=== PATIENT | female | born 1990 | race Caucasian/White ===

== ENCOUNTER 2019-01-12 21:45 | Emergency (ER) | payer BC ==
--- NOTE | 2019-01-12 22:14 | EDM.PDOC ---
ED HPI GENERAL MEDICAL PROBLEM - General Chief Complaint: General Stated Complaint: leg pain Time Seen by Provider: 01/12/19 21:54 Source of Information: Reports: Patient, Family (sister) History Limitations: Reports: No Limitations - History of Present Illness INITIAL COMMENTS - FREE TEXT/NARRATIVE: Patient presents with right lower leg pain and swelling for several days. Today she also felt a little short of breath. No injury or trauma to the leg. She denies any recent prolonged inactivity or bed rest. 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 She has ulcerative colitis and takes prednisone; recently stopped Humira; also takes oral contraceptive. - Related Data Allergies Allergy/AdvReac Type Severity Reaction Status Date / Time codeine Allergy Nausea and Verified 09/27/15 10:38 Vomiting Home Meds: Home Meds Ibuprofen [Motrin] 600 mg PO Q6H #30 tablet 02/24/15 [Rx] Iron 18 mg PO DAILY 02/24/15 [History] Methocarbamol [Robaxin-750] 750 mg PO Q6HR #20 tablet 02/24/15 [Rx] Norgestimate-Ethinyl Estradiol [Norg-Ee 0.18-0.215-0.25/0.035] 1 tab PO DAILY [History] predniSONE [Prednisone] 20 mg PO DAILY #3 tablet 02/24/15 [Rx] Acetaminophen [Tylenol] 325 mg PO 01/12/19 [History] Past Medical History - Past Surgical History HEENT Surgical History: Reports: Adenoidectomy, Tonsillectomy Other Musculoskeletal Surgeries/Procedures:: [place]/Bone spur removal on left foot in spring2012 Social & Family History - Family History Cardiac: Reports: High Cholesterol Other Cardiac Family History: grandmother Respiratory: Reports: COPD Other Respiratory Family Hisory: grandmother Neurological: Reports: CVA Other Neurological Family History: grandmother ED ROS GENERAL - Review of Systems Review Of Systems: See Below Constitutional: Denies: Fever, Chills, Malaise, Weakness HEENT: Denies: Throat Pain, Throat Swelling, Vision Change Respiratory: Reports: Shortness of Breath. Denies: Cough Cardiovascular: Denies: Chest Pain, Lightheadedness, Syncope Endocrine: Reports: No Symptoms GI/Abdominal: Reports: Other (Her UC is doing quite well recently.). Denies: Abdominal Pain, Anorexia, Decreased Appetite : Reports: Dysuria (just today, mild). Denies: Discharge (no vaginal discharge, redness or pain), Flank Pain Musculoskeletal: Reports: Leg Pain (right lower leg anterior and posterior up to knee) Skin: Denies: Cyanosis, Jaundice, Mottled, Pallor, Diaphoresis Neurological: Denies: Confusion, Dizziness, Headache, Seizure, Syncope, Trouble Speaking, Difficulty Walking Psychiatric: Denies: Agitation, Anxiety, Confusion ED EXAM, GENERAL - Physical Exam Exam: See Below Exam Limited By: No Limitations General Appearance: Alert, WD/WN, No Apparent Distress Eye Exam: Bilateral Eye: EOMI, Normal Inspection, PERRL Ears: Normal External Exam, Hearing Grossly Normal Nose: Normal Inspection, No Blood Throat/Mouth: Normal Inspection, Normal Lips, Normal Teeth, Normal Gums, Normal Oropharynx, Normal Voice, No Airway Compromise Head: Atraumatic, Normocephalic Neck: Normal Inspection, Supple, Non-Tender, Full Range of Motion Respiratory/Chest: No Respiratory Distress, Lungs Clear, Normal Breath Sounds, No Accessory Muscle Use Cardiovascular: Regular Rate, Rhythm, No Murmur GI/Abdominal: Soft, Non-Tender, No Organomegaly, No Distention, No Abnormal Bruit Back Exam: Normal Inspection, Full Range of Motion. No: CVA Tenderness (L), CVA Tenderness (R) Extremities: Normal Range of Motion, Normal Capillary Refill, Leg Pain (right calf squeeze is tender), Increased Warmth (right calf, mild with slight redness) , Other (Right calf has slight erythema inferomedially and measures 38 cm vs 36 cm on left. Normal and symmetric plantar/dorsiflexion.). No: Fernando's Sign Neurological: Alert, Oriented, CN II-XII Intact, Normal Cognition, No Motor/ Sensory Deficits Psychiatric: Normal Affect, Normal Mood Skin Exam: Warm, Dry, Intact, Normal Color, No Rash Course - Vital Signs Last Recorded V/S: Last Vital Signs Temp 97.3 F 01/12/19 22:00 Pulse 85 01/12/19 23:42 Resp 18 01/12/19 23:42 BP 116/65 01/12/19 23:42 Pulse Ox 97 01/12/19 23:42 - Orders/Labs/Meds Orders: Active Orders 24 hr Category Date Time Status Chest w Cont [CT] Stat Exams 01/12/19 22:11 Ordered CULTURE URINE [RM] Stat Lab 01/12/19 23:21 Ordered Heparin Sodium/0.45% NaCl [Heparin 25,000 Units in 1/2 Med 01/13/19 00:15 Ordered NS 250 ML] 25,000 units in 250 ml IV CONTINUOUS Sodium Chloride 0.9% [Normal Saline] 100 ml Med 01/12/19 23:00 Active IV ASDIRECTED Medication Orders Sodium Chloride (Normal Saline) 100 mls @ 200 mls/hr IV ASDIRECTED JUMA Last Admin: 01/12/19 23:09 Dose: 200 mls/hr Heparin Sodium/Sodium Chloride (Heparin 25,000 Units In 1/2 Ns 250 Ml) 25,000 units in 250 mls @ 1,000 mls/hr IV CONTINUOUS JUMA Last Admin: 01/13/19 00:28 Dose: 1,000 mls/hr Labs: Laboratory Tests 01/12/19 01/12/19 01/12/19 Range/Units 22:25 22:25 22:25 WBC 21.04 H D (5.00-10.00) 10^3/uL RBC 4.15 (3.80-5.50) 10^6/uL Hgb 9.6 L (12.0-16.0) g/dL Hct 31.3 L (37.0-47.0) % MCV 75.4 L D (82.0-92.0) fL MCH 23.1 L (27.0-31.0) pg MCHC 30.7 L (32.0-36.0) g/dL RDW 15.4 H (11.5-14.5) % Plt Count 397 (150-400) 10^3/uL MPV 9.0 (7.4-10.4) fL Immature Gran % (Auto) 0.6 (0.0-5.0) % Neut % (Auto) 83.4 H (50.0-70.0) % Lymph % (Auto) 10.9 L (20.0-40.0) % Milam % (Auto) 5.1 (2.0-8.0) % Eos % (Auto) 0.0 L (1.0-3.0) % Baso % (Auto) 0.0 (0.0-1.0) % Immature Gran # (Auto) 0.12 (0.00-0.50) 10^3/uL Neut # (Auto) 17.54 H (2.50-7.00) 10^3/uL Lymph # (Auto) 2.30 (1.00-4.00) 10^3/uL Milam # (Auto) 1.07 H (0.10-0.80) 10^3/uL Eos # (Auto) 0.00 L (0.10-0.30) 10^3/uL Baso # (Auto) 0.01 (0.00-0.10) 10^3/uL D-Dimer, Quantitative 1400 H (<400) ng/mL Sodium 141 (136-145) mmol/L Potassium 4.2 (3.3-5.3) mmol/L Chloride 105 (98-115) mmol/L Carbon Dioxide 26.6 (21.0-32.0) mmol/L Anion Gap 13.6 (5-15) mmol/L BUN 17 (6-25) mg/dL Creatinine 0.52 (0.51-1.17) mg/dL Est Cr Clr Drug Dosing TNP Estimated GFR (MDRD) > 60 mL/min Glucose 101 H (75 - 99) mg/dL Calcium 8.5 L (8.7-10.3) mg/dL C-Reactive Protein (0.0-0.9) mg/dL HCG, Qual Negative (NEGATIVE) Specimen Type Urine Color (YELLOW) Urine Appearance (CLEAR) Urine pH (5.0-9.0) Ur Specific Shevlin (1.005-1.030) Urine Protein (NEGATIVE) mg/dL Urine Glucose (UA) (NEGATIVE) mg/dL Urine Ketones (NEGATIVE) mg/dL Urine Occult Blood (NEGATIVE) Urine Nitrite (NEGATIVE) Urine Bilirubin (NEGATIVE) Urine Urobilinogen (0.2-1.0) E.U./dL Ur Leukocyte Esterase (NEGATIVE) Urine RBC (0-5) /HPF Urine WBC (0-5) /HPF Ur Epithelial Cells /LPF Amorphous Sediment (0/HPF) /HPF Urine Bacteria (NONE TO FEW) /HPF 01/12/19 01/12/19 Range/Units 22:25 22:56 WBC (5.00-10.00) 10^3/uL RBC (3.80-5.50) 10^6/uL Hgb (12.0-16.0) g/dL Hct (37.0-47.0) % MCV (82.0-92.0) fL MCH (27.0-31.0) pg MCHC (32.0-36.0) g/dL RDW (11.5-14.5) % Plt Count (150-400) 10^3/uL MPV (7.4-10.4) fL Immature Gran % (Auto) (0.0-5.0) % Neut % (Auto) (50.0-70.0) % Lymph % (Auto) (20.0-40.0) % Milam % (Auto) (2.0-8.0) % Eos % (Auto) (1.0-3.0) % Baso % (Auto) (0.0-1.0) % Immature Gran # (Auto) (0.00-0.50) 10^3/uL Neut # (Auto) (2.50-7.00) 10^3/uL Lymph # (Auto) (1.00-4.00) 10^3/uL Milam # (Auto) (0.10-0.80) 10^3/uL Eos # (Auto) (0.10-0.30) 10^3/uL Baso # (Auto) (0.00-0.10) 10^3/uL D-Dimer, Quantitative (<400) ng/mL Sodium (136-145) mmol/L Potassium (3.3-5.3) mmol/L Chloride (98-115) mmol/L Carbon Dioxide (21.0-32.0) mmol/L Anion Gap (5-15) mmol/L BUN (6-25) mg/dL Creatinine (0.51-1.17) mg/dL Est Cr Clr Drug Dosing Estimated GFR (MDRD) mL/min Glucose (75 - 99) mg/dL Calcium (8.7-10.3) mg/dL C-Reactive Protein 0.4 (0.0-0.9) mg/dL HCG, Qual (NEGATIVE) Specimen Type Urincc Urine Color Yellow (YELLOW) Urine Appearance Cloudy H (CLEAR) Urine pH 7.5 (5.0-9.0) Ur Specific [place] 1.020 (1.005-1.030) Urine Protein Negative (NEGATIVE) mg/dL Urine Glucose (UA) Negative (NEGATIVE) mg/dL Urine Ketones Negative (NEGATIVE) mg/dL Urine Occult Blood Negative (NEGATIVE) Urine Nitrite Negative (NEGATIVE) Urine Bilirubin Negative (NEGATIVE) Urine Urobilinogen 0.2 (0.2-1.0) E.U./dL Ur Leukocyte Esterase Negative (NEGATIVE) Urine RBC 0-5 (0-5) /HPF Urine WBC 0-5 (0-5) /HPF Ur Epithelial Cells Few /LPF Amorphous Sediment Many H (0/HPF) /HPF Urine Bacteria Moderate H (NONE TO FEW) /HPF Meds: Medications Generic Name Dose Route Start Last Admin Trade Name Freq PRN Reason Stop Dose Admin Sodium Chloride 100 mls @ 200 mls/hr 01/12/19 23:00 01/12/19 23:09 Normal Saline IV 200 mls/hr ASDIRECTED JUMA Administration Heparin Sodium/Sodium Chloride 25,000 units in 250 mls @ 1,000 mls/hr 00:15 01/13/19 00:28 Heparin 25,000 Units In 1/2 Ns 250 Ml IV 1,000 mls/hr CONTINUOUS JUMA Administration Discontinued Medications Generic Name Dose Route Start Last Admin Trade Name Freq PRN Reason Stop Dose Admin Heparin Sodium (Porcine) 5,000 units 01/13/19 00:03 01/13/19 00:11 Heparin Sodium IVPUSH 01/13/19 00:04 5,000 units ONETIME ONE Administration Iopamidol 100 ml 01/12/19 22:52 01/12/19 23:09 Isovue-370 (76%) IV 01/12/19 22:53 75 ml ONETIME ONE Administration - Re-Assessments/Exams Free Text/Narrative Re-Assessment/Exam: 01/13/19 00:41 D-dimer 1400. Chest CT shows emboli in right middle and lower lobes. No massive emboli. Elevated WBC most likely from the PE as no solid evidence of infective source, but infection not ruled out. Discussed with patient and she wants to go to [facility]. Discussed case with Dr. Vivek VENCES who accepted for transfer; also discussed her ulcerative colitis that has often involved GI bleeding, will use heparin rather than Lovenox for quicker reversal if necessary. Waiting complaint investigations officer for bed and transfer. Heparin bolus is in and drip is running. Patient is stable. Departure - Departure Time of Disposition: 00:09 Disposition: DC/Tfer to Acute Hospital 02 Condition: Good Clinical Impression: Pulmonary emboli Qualifiers: Pulmonary embolism type: unspecified Chronicity: acute Acute cor pulmonale presence: without acute cor pulmonale Qualified Code(s): I26.99 - Other pulmonary embolism without acute cor pulmonale - Discharge Information Forms: ED Department Discharge - My Orders Last 24 Hours: My Active Orders 01/12/19 22:11 Chest w Cont [CT] Stat 01/12/19 23:00 Sodium Chloride 0.9% [Normal Saline] 100 ml IV ASDIRECTED 01/12/19 23:21 CULTURE URINE [RM] Stat 01/13/19 00:15 Heparin Sodium/0.45% NaCl [Heparin 25,000 Units in 1/2 NS 250 ML] 25,000 units in 250 ml IV CONTINUOUS - Assessment/Plan Last 24 Hours: My Active Orders 01/12/19 22:11 Chest w Cont [CT] Stat 01/12/19 23:00 Sodium Chloride 0.9% [Normal Saline] 100 ml IV ASDIRECTED 01/12/19 23:21 CULTURE URINE [RM] Stat 01/13/19 00:15 Heparin Sodium/0.45% NaCl [Heparin 25,000 Units in 1/2 NS 250 ML] 25,000 units in 250 ml IV CONTINUOUS
[2019-01-12 22:54] LABS: ANION GAP 13.6 mmol/L (5-15); CHLORIDE,CL 105 mmol/L (98-115); SODIUM,NA 141 mmol/L (136-145)
[2019-01-12] MEDS: Iopamidol 755 Mg/ML 100 ML Bottle IV ONE (23:09)
[2019-01-12] MEDS: Sodium Chloride 0.9% 100 ML IV SCH (23:09)
[2019-01-13] MEDS: Heparin Sodium 5,000 Units/ML Vial IVPUSH ONE (00:11)
[2019-01-13] MEDS: Heparin Sodium/0.45% NaCl 25,000 UNITS/250 ML BAG IV SCH (00:28)
[2019-01-13 00:51] VITALS: BP 136/79; PULSE 96
--- NOTE | 2019-01-13 07:44 | CT ---
[id number] CT/CTA Chest EXAM: CT ANGIOGRAM CHEST INDICATION: Dyspnea and right lower extremity swelling. COMPARISON: None. DISCUSSION: Lobar, segmental, and subsegmental right middle and lower lobe pulmonary emboli. No definite left-sided emboli. No evidence of right heart strain. The lungs are clear with no nodule, infiltrate or mass identified.No pleural or pericardial effusion. Normal heart size. No mediastinal, hilar or axillary lymphadenopathy. The imaged upper abdomen and osseous structures are unremarkable. Results called by preliminary radiology service. IMPRESSION: 1. Right middle and lower lobe lobar and segmental pulmonary emboli without evidence of right heart strain. Lauro Camacho MD 01/13/19 0743 Thank you for allowing us to participate in the care of your patient.
== END 2019-01-13 01:13 ==
LOC: KA.ED 21:45
DX: I26.99 Other pulmonary embolism without acute cor pulmonale (principal); Z88.5 Allergy status to narcotic agent; Z98.890 Other specified postprocedural states
CPT/HCPCS: 36415; 71260; 80048; 81001; 84703; 85025; 85379; 86140; 87086; 96365; 96376; 99285-25; J1644; J7050; Q9967